=== PATIENT | female | born 1980 | race Caucasian/White ===

== ENCOUNTER 2020-05-21 13:00 | Outpatient (RCR) | payer MEDICAID, SELFPAY ==
[2020-05-21 13:20] LABS: HGB 14.2 g/dL (11.2-15.7)
[2020-05-21] MEDS: Heparin 500 UNITS/5 ML SYRINGE IV (14:10)
[2020-05-21] MEDS: Normal Saline Flush 10 ML SYR IVP (14:10)
[2020-05-21 14:14] LABS: Ferritin > 2000 ng/mL (8-252)
== END 2020-05-27 23:59 | disposition home or self-care (01) ==
LOC: INF 13:00
PROVIDERS: PCP Nurse Practitioner Family; Visit Provider Nurse Practitioner Family
DX: E83.119 Hemochromatosis, unspecified (principal)
CPT/HCPCS: 36591; 99195; 82728; 85018

== ENCOUNTER 2020-06-14 04:30 | Outpatient (RCR) | payer MEDICAID, SELFPAY ==
[2020-06-04 13:10] LABS: HCT 40.3 % (36.0-46.0)
[2020-06-14 11:51] LABS: HGB 12.3 g/dL (11.2-15.7)
[2020-06-14] MEDS: Normal Saline Flush 10 ML SYR IVP (12:00)
== END 2020-06-27 23:59 | disposition home or self-care (01) ==
LOC: INF 04:30
PROVIDERS: PCP Nurse Practitioner Family; Visit Provider Nurse Practitioner Family
DX: E83.110 Hereditary hemochromatosis (principal); Z45.2 Encounter for adjustment and management of vascular access device
CPT/HCPCS: 36415; 36591; 99195; 85014; 85018

== ENCOUNTER 2020-07-24 02:05 | Outpatient (RCR) | payer MEDICAID, SELFPAY ==
[2020-07-04 11:47] LABS: HCT 41.9 % (36.0-46.0); HGB 13.8 g/dL (11.2-15.7)
[2020-07-04 12:31] LABS: Ferritin 1689 ng/mL (8-252)
[2020-07-10 13:34] LABS: HGB 13.6 g/dL (11.2-15.7)
[2020-07-17 13:10] LABS: HGB 13.4 g/dL (11.2-15.7)
[2020-07-17] MEDS: Water,Injection,Sterile 10 ML VIAL (13:49)
[2020-07-17] MEDS: Normal Saline Flush 10 ML SYR IVP (13:49)
[2020-07-17] MEDS: Lidocaine 1% Multi-Dose 50 ML VIAL IJ (13:49)
[2020-07-17] MEDS: Heparin 500 UNITS/5 ML SYRINGE IV (13:50)
[2020-07-17] MEDS: Alteplase 2 MG VIAL (13:50)
--- NOTE | 2020-07-24 12:36 | DI.RAD_ITS ---
EXAM: XR PORTABLE CHEST AP POST LINE CLINICAL HISTORY: check port line placement TECHNIQUE: 2D digital imaging was performed. COMPARISON: No exams were available for comparison FINDINGS: LUNGS: Clear. No pleural abnormality seen. HEART: Normal. MEDIASTINUM: Normal. A port has been placed via the right subclavian with the tip projecting in the superior vena cava. BONES: Unremarkable. IMPRESSION: No acute pulmonary findings. Satisfactory port placement. DATA REPOSITORY: RADIATION DOSE DELIVERED:
[2020-07-24 13:41] LABS: HGB 12.1 g/dL (11.2-15.7)
[2020-07-24] MEDS: Heparin 500 UNITS/5 ML SYRINGE IV (13:42)
[2020-07-24] MEDS: Normal Saline Flush 10 ML SYR IVP (13:42)
== END 2020-07-28 23:59 | disposition home or self-care (01) ==
LOC: INF 02:05
PROVIDERS: PCP Nurse Practitioner Family; Visit Provider Nurse Practitioner Family
DX: E83.110 Hereditary hemochromatosis (principal)
CPT/HCPCS: 36415; 36591; 71045; 96523; 99195; 82728; 85014; 85018; J2997

== ENCOUNTER 2020-08-14 02:21 | Outpatient (RCR) | payer MEDICAID, SELFPAY ==
[2020-08-14 13:10] LABS: HGB 14.1 g/dL (11.2-15.7)
[2020-08-14 14:03] LABS: Ferritin 1622 ng/mL (8-252)
== END 2020-08-25 23:59 | disposition home or self-care (01) ==
LOC: INF 02:21
PROVIDERS: PCP Nurse Practitioner Family; Visit Provider Nurse Practitioner Family
DX: E83.110 Hereditary hemochromatosis (principal)
CPT/HCPCS: 36415; 99195; 82728; 85018

== ENCOUNTER 2020-12-18 01:48 | Outpatient (RCR) | payer MEDICAID, SELFPAY ==
[2020-11-29] MEDS: Normal Saline Flush 10 ML SYR IVP (13:00)
[2020-11-29 13:04] LABS: HGB 15.5 g/dL (11.2-15.7)
[2020-11-29 13:55] LABS: Ferritin 1702 ng/mL (8-252)
[2020-12-11 13:32] LABS: HGB 13.9 g/dL (11.2-15.7)
[2020-12-18 13:41] LABS: HGB 13.3 g/dL (11.2-15.7)
[2020-12-18] MEDS: Normal Saline Flush 10 ML SYR IVP (15:02)
== END 2020-12-25 23:59 | disposition home or self-care (01) ==
LOC: INF 01:48
PROVIDERS: PCP Nurse Practitioner Family; Visit Provider Nurse Practitioner Family
DX: E83.110 Hereditary hemochromatosis (principal)
CPT/HCPCS: 36415; 99195; 82728; 85018

== ENCOUNTER 2021-01-01 13:00 | Outpatient (RCR) | payer MEDICAID, SELFPAY ==
[2021-01-01 13:26] LABS: HGB 14.1 g/dL (11.2-15.7)
[2021-01-01] MEDS: Normal Saline Flush 10 ML SYR IVP (13:30)
== END 2021-01-25 23:59 | disposition home or self-care (01) ==
LOC: INF 13:00
PROVIDERS: PCP Nurse Practitioner Family; Visit Provider Nurse Practitioner Family
DX: E83.110 Hereditary hemochromatosis (principal)
CPT/HCPCS: 36415; 99195; 85018